=== PATIENT | female | born 1965 | race Caucasian/White ===

== ENCOUNTER 2017-12-28 15:38 | Emergency (ER) | payer SELFPAY ==
[~2017-12-28] VITALS: Ht 149.9 cm; Wt 61.2 kg
[2017-12-28 16:05] VITALS: BP 105/78
== END 2017-12-28 16:45 | disposition home or self-care (01) ==
LOC: ER 15:42
DX: B86 Scabies (principal)

== ENCOUNTER 2021-05-13 17:32 | Emergency (ER) | payer MEDICAID, OTHER ==
[~2021-05-13] VITALS: Ht 149.9 cm; Wt 49.9 kg
[2021-05-13 17:33] VITALS: BP 127/70
[2021-05-13] MEDS ORDERED: SODIUM CHLORIDE 0.9% 1,000 ML IV ONE ×2 (19:15)
[2021-05-13] MEDS ORDERED: chlordiazePOXIDE HCL 25 MG CAP PO ONE (19:15)
== END 2021-05-13 22:06 | disposition home or self-care (01) ==
LOC: EDUNIT# 17:32 → EDBD 17:32 → ER 17:32
DX: F10.129 Alcohol abuse with intoxication, unspecified (principal); Y90.9 Presence of alcohol in blood, level not specified
CPT/HCPCS: 36415; 85025; 96360; 96361; 99283; J7030

== ENCOUNTER 2021-05-19 11:00 | Inpatient (IN) | payer MEDICAID, OTHER ==
[~2021-05-19] VITALS: Ht 162.6 cm; Wt 70.4 kg
[2021-05-19] MEDS ORDERED: SODIUM CHLORIDE 0.9% 1,000 ML IV ONE ×2 (11:30)
[2021-05-19] MEDS ORDERED: THIAMINE 100mg/ml INJ (200mg/2ml VIAL) IV ONE (11:30)
[2021-05-19 12:44] LABS: Basophils # (auto) 0 10 ^3/uL (0-0.2); Basophils % (auto) 0.5 % (0.0-2.0); Eosinophils # (auto) 0.1 10 ^3/uL (0-0.8); Eosinophils % (auto) 1.5 % (0.0-7.0); Lymphocytes # (auto) 1.3 10 ^3/uL (0.4-5.4)
[2021-05-19 12:46] LABS: Hematocrit 33.9 % (36.0-46.0); Hemoglobin 11.3 g/dL (12.2-16.2); Lymphocytes % (auto) 15.1 % (10.0-50.0); Mean Corpuscular Hemoglobin 34.4 pg (28.0-32.0); Mean Corpuscular Hgb Conc. 33.4 g/dL (32.0-36.0); Monocytes # (auto) 0.6 10 ^3/uL (0-1.3); Monocytes % (auto) 7.5 % (0.0-12.0); Neutrophils # (auto) 6.5 10 ^3/uL (1.6-8.6); Neutrophils % (auto) 75.4 % (37.0-80.0); Nucleated Red Blood Cells % 0.1 %; Red Blood Cells 3.29 10^6/uL (4.0-5.20); Red Cell Distribution Width 13.2 % (11.8-14.3); White Blood Cell 8.7 10^3/uL (4.4-10.8)
[2021-05-19 12:50] LABS: Urine Bacteria FEW /hpf (None Seen); Urine Blood Negative /uL (Negative); Urine Specific Gravity 1.006 (1.001-1.035); Urine WBC <1 /hpf (0 - 5)
[2021-05-19 12:59] LABS: INR 0.99 (0.9-1.15); Partial Thromboplastin Time 25.9 sec (23.6-33.0)
[2021-05-19 13:07] LABS: Albumin 2.5 g/dL (3.4-5.0); Magnesium 2.7 mg/dL (1.6-2.6)
[2021-05-19 13:08] LABS: Lactic Acid w/Reflex 2.2 mmol/L (0.4-2.0)
[2021-05-19 13:09] LABS: Amphetamine Screen, Urine POSITIVE (NEGATIVE); Barbiturate Scree,Urine NEGATIVE (NEGATIVE); Benzodiazephine Screen, Urine NEGATIVE (NEGATIVE); Cannabinoid Screen, Urine NEGATIVE (NEGATIVE); Cocaine Screen, Urine NEGATIVE (NEGATIVE); Opiate Scree,Urine NEGATIVE (NEGATIVE); Phencyclidine Screen, Urine NEGATIVE (NEGATIVE)
[2021-05-19 13:20] LABS: BUN/Creatinine Ratio 18.2; Bilirubin, Total 0.2 mg/dL (0.2-1.0); Total Protein 5.8 g/dL (6.4-8.2)
[2021-05-19 13:45] LABS: Potassium 2.8 mmol/L (3.5-5.1)
[2021-05-19] MEDS ORDERED: POTASSIUM EFFERVESENT TAB 25 MEQ PO ONE (14:00)
[2021-05-19] MEDS ORDERED: DOCUSATE CALCIUM 240 MG CAP PO PRN (15:15)
[2021-05-19] MEDS ORDERED: ONDANSETRON HCL 4 MG/2 ML VIAL IV PRN (15:15)
[2021-05-19] MEDS ORDERED: hydrALAZINE HCL 20 MG/ML VL IV PRN (15:15)
[2021-05-19] MEDS ORDERED: MORPHINE SULFATE INJECTION 2 MG/ML SYRG IV PRN (15:15)
[2021-05-19] MEDS ORDERED: NITROGLYCERIN 0.4 MG SL TAB SL PRN (15:15)
[2021-05-19] MEDS ORDERED: SOD CHL 0.9%/ KCL 20MEQ 1,000 ML IV ONE (15:15)
[2021-05-19 18:50] LABS: Calcium 6.5 mg/dL (8.5-10.1); Potassium 4.1 mmol/L (3.5-5.1)
[2021-05-19 18:52] LABS: Lactic Acid w/Reflex 3.3 mmol/L (0.4-2.0)
[2021-05-20] MEDS: ACETAMINOPHEN 500 MG TAB PO PRN (01:20)
[2021-05-20] MEDS: chlordiazePOXIDE HCL 25 MG CAP PO PRN ×2 (01:20→12:19)
[2021-05-20 07:05] LABS: Eosinophils # (auto) 0.1 10 ^3/uL (0-0.8); Red Blood Cells 3.45 10^6/uL (4.0-5.20)
[2021-05-20 07:09] LABS: Basophils # (auto) 0.1 10 ^3/uL (0-0.2); Basophils % (auto) 0.8 % (0.0-2.0); Hematocrit 35.2 % (36.0-46.0); Hemoglobin 11.9 g/dL (12.2-16.2); Lymphocytes # (auto) 1.7 10 ^3/uL (0.4-5.4); Lymphocytes % (auto) 19.7 % (10.0-50.0); Mean Corpuscular Hemoglobin 34.4 pg (28.0-32.0); Mean Corpuscular Hgb Conc. 33.7 g/dL (32.0-36.0); Mean Corpuscular Volume 101.9 fL (80.0-100.0); Monocytes # (auto) 0.8 10 ^3/uL (0-1.3); Monocytes % (auto) 9.3 % (0.0-12.0); Neutrophils # (auto) 5.9 10 ^3/uL (1.6-8.6); Neutrophils % (auto) 69.2 % (37.0-80.0); Red Cell Distribution Width 13.7 % (11.8-14.3); White Blood Cell 8.5 10^3/uL (4.4-10.8)
[2021-05-20 07:14] LABS: Calcium 7.6 mg/dL (8.5-10.1); Potassium 3.8 mmol/L (3.5-5.1)
[2021-05-20 07:48] LABS: Albumin 2.6 g/dL (3.4-5.0); BUN/Creatinine Ratio 19.4; Bilirubin, Total 0.6 mg/dL (0.2-1.0); Total Protein 5.6 g/dL (6.4-8.2)
[2021-05-20] MEDS: PANTOPRAZOLE 40 MG/10 ML VIAL INJ IV SCH (09:13)
[2021-05-20] MEDS: THIAMINE 100mg/ml INJ (200mg/2ml VIAL) IV SCH (09:13)
[2021-05-20] MEDS: ENOXAPARIN SOD 40 MG/0.4 ML SYRINGE SC SCH (09:13)
[2021-05-20] MEDS: FOLIC ACID 1 MG in D5W 5% 50 ML INJ SCH (10:00)
[2021-05-20 11:14] LABS: Barbiturate Scree,Urine NEGATIVE (NEGATIVE); Benzodiazephine Screen, Urine POSITIVE (NEGATIVE); Cocaine Screen, Urine NEGATIVE (NEGATIVE); Opiate Scree,Urine NEGATIVE (NEGATIVE); Phencyclidine Screen, Urine NEGATIVE (NEGATIVE)
[2021-05-20 11:24] LABS: Amphetamine Screen, Urine POSITIVE (NEGATIVE); Cannabinoid Screen, Urine NEGATIVE (NEGATIVE)
[2021-05-20] MEDS ORDERED: LOPERAMIDE HCL 2 MG CAP PO ONE (14:45)
[2021-05-20 14:46] LABS: Potassium 3.4 mmol/L (3.5-5.1)
[2021-05-20 14:50] LABS: BUN/Creatinine Ratio 18.8; Calcium 7.6 mg/dL (8.5-10.1)
[2021-05-20 16:00] VITALS: BP 138/74
[2021-05-20 20:00] VITALS: BP 107/55
[2021-05-20 22:00] VITALS: BP 107/55
[2021-05-21] MEDS: cefTRIAXone 1GM/50ML D5W 50 ML IV SCH ×2 (04:22→11:50)
[2021-05-21 05:00] VITALS: BP 156/81
[2021-05-21 09:00] VITALS: BP 139/86
[2021-05-21] MEDS: ENOXAPARIN SOD 40 MG/0.4 ML SYRINGE SC SCH (09:06)
[2021-05-21] MEDS: THIAMINE 100mg/ml INJ (200mg/2ml VIAL) IV SCH (09:07)
[2021-05-21] MEDS: LOPERAMIDE HCL 2 MG CAP PO PRN ×3 (09:07→18:20)
[2021-05-21] MEDS: PANTOPRAZOLE 40 MG/10 ML VIAL INJ IV SCH (09:07)
[2021-05-21] MEDS: FOLIC ACID 1 MG in D5W 5% 50 ML INJ SCH (10:00)
[2021-05-21] MEDS ORDERED: VANCOMYCIN 1GM/250ML 250 ML IV ONE (10:45)
[2021-05-21] MEDS ORDERED: VANCOMYCIN PER PHARMACY 0 MG IV SCH (10:45)
[2021-05-21] MEDS: chlordiazePOXIDE HCL 25 MG CAP PO PRN (11:49)
[2021-05-21 12:49] VITALS: BP 136/73
[2021-05-21 17:00] VITALS: BP 126/74
[2021-05-21 22:34] VITALS: BP 128/69
[2021-05-22] MEDS: VANCOMYCIN 1GM/250ML 250 ML IV SCH ×3 (01:09→21:03)
[2021-05-22 05:00] VITALS: BP 124/72
[2021-05-22 05:57] LABS: Basophils # (auto) 0 10 ^3/uL (0-0.2); Basophils % (auto) 0.7 % (0.0-2.0); Eosinophils # (auto) 0.1 10 ^3/uL (0-0.8); Eosinophils % (auto) 2.4 % (0.0-7.0); Lymphocytes # (auto) 1.4 10 ^3/uL (0.4-5.4); Nucleated Red Blood Cells % 0.1 %; White Blood Cell 5.4 10^3/uL (4.4-10.8)
[2021-05-22 06:03] LABS: Hematocrit 31.3 % (36.0-46.0); Hemoglobin 10.9 g/dL (12.2-16.2); Lymphocytes % (auto) 25.3 % (10.0-50.0); Mean Corpuscular Hgb Conc. 34.9 g/dL (32.0-36.0); Mean Corpuscular Volume 100.3 fL (80.0-100.0); Monocytes # (auto) 0.7 10 ^3/uL (0-1.3); Monocytes % (auto) 13.7 % (0.0-12.0); Neutrophils # (auto) 3.2 10 ^3/uL (1.6-8.6); Neutrophils % (auto) 57.9 % (37.0-80.0); Red Blood Cells 3.12 10^6/uL (4.0-5.20); Red Cell Distribution Width 12.9 % (11.8-14.3)
[2021-05-22 08:00] VITALS: BP 104/55
[2021-05-22] MEDS: cefTRIAXone 1GM/50ML D5W 50 ML IV SCH (08:52)
[2021-05-22] MEDS: THIAMINE 100mg/ml INJ (200mg/2ml VIAL) IV SCH (08:52)
[2021-05-22] MEDS: PANTOPRAZOLE 40 MG/10 ML VIAL INJ IV SCH (08:52)
[2021-05-22] MEDS: ENOXAPARIN SOD 40 MG/0.4 ML SYRINGE SC SCH (08:53)
[2021-05-22] MEDS: FOLIC ACID 1 MG in D5W 5% 50 ML INJ SCH (08:57)
[2021-05-22] MEDS: chlordiazePOXIDE HCL 25 MG CAP PO PRN ×3 (11:42→22:37)
[2021-05-22 12:00] VITALS: BP 101/51
[2021-05-22] MEDS: metroNIDAZOLE 500MG/100ML 100 ML IV SCH ×2 (13:35→22:36)
[2021-05-22 16:43] VITALS: BP 106/63
[2021-05-22] MEDS: SUCRALFATE 1 GM/10 ML ORAL SUSP GT SCH ×2 (16:44→22:36)
[2021-05-22] MEDS: MORPHINE SULFATE INJECTION 2 MG/ML SYRG IV PRN (16:45)
[2021-05-22 22:18] VITALS: BP 89/55
[2021-05-23] MEDS: metroNIDAZOLE 500MG/100ML 100 ML IV SCH (05:11)
[2021-05-23 05:29] VITALS: BP 101/50
[2021-05-23] MEDS: SUCRALFATE 1 GM/10 ML ORAL SUSP GT SCH ×2 (06:30→11:42)
[2021-05-23] MEDS: VANCOMYCIN 1GM/250ML 250 ML IV SCH (06:30)
[2021-05-23 08:00] VITALS: BP 90/56
[2021-05-23] MEDS: cefTRIAXone 1GM/50ML D5W 50 ML IV SCH (09:18)
[2021-05-23] MEDS: ENOXAPARIN SOD 40 MG/0.4 ML SYRINGE SC SCH (09:21)
[2021-05-23] MEDS: MORPHINE SULFATE INJECTION 2 MG/ML SYRG IV PRN (09:22)
[2021-05-23] MEDS: THIAMINE 100mg/ml INJ (200mg/2ml VIAL) IV SCH (09:22)
[2021-05-23] MEDS ORDERED: PANTOPRAZOLE 40 MG TAB PO SCH (10:00)
[2021-05-23] MEDS: ACETAMINOPHEN 500 MG TAB PO PRN (11:42)
[2021-05-23] MEDS: chlordiazePOXIDE HCL 25 MG CAP PO PRN (11:42)
[2021-05-23] MEDS: FOLIC ACID 1 MG in D5W 5% 50 ML INJ SCH (11:42)
[2021-05-23 12:00] VITALS: BP 99/57
[2021-05-23 15:18] VITALS: BP 99/67
== END 2021-05-23 15:55 | disposition home or self-care (01) | DRG 720 ==
LOC: EDBD 11:00 → ER 11:00 → TELE 15:07 → TELE-WESTW 05-20 13:01 → WEST WING 05-22 14:15
PROVIDERS: ADMIT Family Medicine; ATTEND Family Medicine
DX: A41.89 Other specified sepsis (principal); G92.8 Other toxic encephalopathy; E44.1 Mild protein-calorie malnutrition; R64 Cachexia; E83.51 Hypocalcemia; I95.9 Hypotension, unspecified; D64.9 Anemia, unspecified; E86.0 Dehydration; E87.6 Hypokalemia; K52.9 Noninfective gastroenteritis and colitis, unspecified; K29.20 Alcoholic gastritis without bleeding; F10.120 Alcohol abuse with intoxication, uncomplicated; F15.90 Other stimulant use, unspecified, uncomplicated; F17.210 Nicotine dependence, cigarettes, uncomplicated; F32.A Depression, unspecified; F41.9 Anxiety disorder, unspecified; Z71.6 Tobacco abuse counseling; Y90.8 Blood alcohol level of 240 mg/100 ml or more; Z20.822 Contact with and (suspected) exposure to COVID-19; Z68.26 Body mass index [BMI] 26.0-26.9, adult
CPT/HCPCS: 36415; 70450; 71045; 74176; 80048; 80053; 80202; 80307; 80320; 81001; 82565; 83036; 83605; 83690; 83735; 84443; 85025; 85610; 85730; 87040; 87077; 87081; 87186; 87426; 93005; 96361; 96374; C9113; G0378; J0696; J3490; J7060